=== PATIENT | male | born 1965 | race Caucasian/White ===

== ENCOUNTER 2024-01-24 14:12 | Emergency (ER) | payer OTHER ==
[~2024-01-24] VITALS: Ht 172.7 cm; Wt 81.6 kg
[2024-01-24 14:16] VITALS: BP 112/63; PULSE 87; TEMP 98.3; O2SAT 95
== END 2024-01-24 16:35 | disposition left against medical advice (07) ==
LOC: MED 14:12
DX: F10.129 Alcohol abuse with intoxication, unspecified (principal)
CPT/HCPCS: 99281; 99283